=== PATIENT | female | born 1950 | race Caucasian/White ===

== ENCOUNTER → 2019-12-26 10:14 | Outpatient (BNVA) | payer MEDICARE, OTHER, SELFPAY | PROVIDERS: Visit Provider Specialist | DX: F32.9 Major depressive disorder, single episode, unspecified (principal); F17.200 Nicotine dependence, unspecified, uncomplicated; F41.9 Anxiety disorder, unspecified; J44.9 Chronic obstructive pulmonary disease, unspecified | CPT/HCPCS: 99213 ==

== ENCOUNTER 2020-01-09 10:03 | Outpatient (CLI) | payer MEDICARE, OTHER, SELFPAY ==
--- NOTE | 2020-01-09 10:07 | CT_ITS ---
WS: [id number] CT LUNG CANCER SCREENING DLP: 92.69 mGy.cm DIvol: 2.45 mGy CLINICAL INFORMATION SCREENING VISIT: Baseline COMPARISON: 11/17/2017 FINDINGS Diagnostic quality: Satisfactory Comments: None. Lung Nodules: No pulmonary nodules or endobronchial lesions. Lungs: Marked pulmonary hyperexpansion from emphysema. Very minimal interstitial thickening in the pe riphery. No pleural effusions. Heart: Normal heart size. There is a small amount of pericardial fluid versus pericardial thickening. Other findings: Mild atherosclerosis thoracic aorta. Pulmonary artery size is equal to the aorta. CT/CT lung screening [id number] IMPRESSION: LUNG-RADS: 1-Negative FOLLOW UP: 12 Month: Continue annual screening with LDCT
== END 2020-01-09 10:04 | disposition home or self-care (01) ==
LOC: CT 10:05
PROVIDERS: Visit Provider Internal Medicine Critical Care Medicine
DX: Z12.2 Encounter for screening for malignant neoplasm of respiratory organs (principal); F17.210 Nicotine dependence, cigarettes, uncomplicated; I70.0 Atherosclerosis of aorta; J43.9 Emphysema, unspecified
CPT/HCPCS: G0297

== ENCOUNTER 2020-01-22 07:07 | Outpatient (CLI) | payer MEDICARE, OTHER, SELFPAY ==
--- NOTE | 2020-01-22 13:14 | PFTS_ITS ---
Date of Study:01/22/20 Date of Dictation: MECHANICS: Forced vital capacity (FVC) is reduced. Forced expiratory volume in one second (FEV1) is reduced. FEV1/FVC is reduced. FLOW VOLUME LOOP: Reduced flow at all lung volumes with significant scooping. LUNG VOLUMES: Total lung capacity (TLC) is elevated. Residual volume (RV) is elevated. DIFFUSING CAPACITY FOR CARBON MONOXIDE: Severely reduced. INTERPRETATION: The pulmonary function tests are consistent with very severe obstruction. Lung volumes are consistent with air trapping and hyperinflation. Gas exchange (DLCO) is severely reduced. MTDD
== END 2020-01-22 07:08 | disposition home or self-care (01) ==
LOC: RT 07:07
PROVIDERS: Visit Provider Internal Medicine Pulmonary Disease
DX: J44.9 Chronic obstructive pulmonary disease, unspecified (principal); F17.200 Nicotine dependence, unspecified, uncomplicated
CPT/HCPCS: 94010; 94726; 94729

== ENCOUNTER → 2020-12-03 10:54 | Outpatient (BNVA) | payer MEDICARE, OTHER, SELFPAY | PROVIDERS: Visit Provider Specialist | DX: F41.9 Anxiety disorder, unspecified (principal); F32.9 Major depressive disorder, single episode, unspecified; J43.2 Centrilobular emphysema; F17.210 Nicotine dependence, cigarettes, uncomplicated | CPT/HCPCS: 99212 ==

== ENCOUNTER 2021-06-04 08:58 | Outpatient (CLI) | payer MEDICARE, OTHER, SELFPAY ==
[2021-06-04 07:11] VITALS: BP 153/82; PULSE 81; RESP 18; TEMP 36.7; O2SAT 91
[2021-06-04 09:23] VITALS: BP 153/82; PULSE 81; RESP 18; TEMP 36.7; O2SAT 91; BMI 20.5
[2021-06-04 10:31] VITALS: BP 161/75; PULSE 66; RESP 18; TEMP 37; O2SAT 99
[2021-06-04 11:37] VITALS: BP 139/78; BP 139/87; PULSE 70; RESP 18; TEMP 36.7; O2SAT 96
== END 2021-06-04 08:59 | disposition home or self-care (01) ==
LOC: OPS 09:04
PROVIDERS: PCP Internal Medicine; Visit Provider Nurse Practitioner
DX: U07.1 COVID-19 (principal)
CPT/HCPCS: 96365

== ENCOUNTER → 2021-12-01 09:58 | Outpatient (BNVA) | payer MEDICARE, OTHER, SELFPAY | PROVIDERS: PCP Internal Medicine; Visit Provider Specialist | DX: F41.9 Anxiety disorder, unspecified (principal); F32.9 Major depressive disorder, single episode, unspecified; J43.2 Centrilobular emphysema; Z86.16 Personal history of COVID-19; F17.210 Nicotine dependence, cigarettes, uncomplicated | CPT/HCPCS: 99213; 99214 ==

== ENCOUNTER 2022-01-06 11:05 | Outpatient (CLI) | payer MEDICARE, OTHER, SELFPAY ==
--- NOTE | 2022-01-06 11:15 | CT_ITS ---
WS: [id number] LDCT LUNG CANCER SCREENING TECHNIQUE: Noncontrast CT of the chest with coronal and sagittal reformatted images. CLINICAL INFORMATION: lung screening COMPARISON: None. DLP: 81.01 mGy.cm DIvol: Mean CTDIvol: 1.60 (mGy) All CT scans at [facility] use at least one of these dose optimization techniques: automat ed exposure control; mA and/or kV adjustment per patient size (includes targeted exams where dose is matched to clinical indication); or iterative reconstruction. FINDINGS: Mild chronic sinus changes. No acute pulmonary infiltrates. No focal pneumonia or pleural fluid. Aort ic calcification. Normal caliber thoracic aorta. Coronary calcification. No mediastinal or hilar lymp hadenopathy. No axillary lymphadenopathy. Tiny 2 mm noncalcified nodule RIGHT middle lobe. Tiny esophageal hiatal hernia. Tiny pericardial effusion pericardial thickening similar to previous. CT/CT lung screening [id number] IMPRESSION: LUNG-RADS: 2-Benign Appearance or Behavior FOLLOW UP: 12 Month: Continue annual screening with LDCT
== END 2022-01-06 11:06 | disposition home or self-care (01) ==
LOC: RAD 11:07
PROVIDERS: PCP Internal Medicine; Visit Provider Internal Medicine Pulmonary Disease
DX: Z12.2 Encounter for screening for malignant neoplasm of respiratory organs (principal); F17.210 Nicotine dependence, cigarettes, uncomplicated
CPT/HCPCS: 71271

== ENCOUNTER → 2022-05-14 09:44 | Outpatient (BNVA) | payer MEDICARE, OTHER, SELFPAY | PROVIDERS: PCP Internal Medicine; Visit Provider Specialist | DX: L50.1 Idiopathic urticaria (principal); J30.9 Allergic rhinitis, unspecified; J43.2 Centrilobular emphysema; F41.9 Anxiety disorder, unspecified; F32.A Depression, unspecified; F17.210 Nicotine dependence, cigarettes, uncomplicated | CPT/HCPCS: 36415; 80053; 84443; 85025; 85651; 86140; 99214 ==

== ENCOUNTER 2022-07-21 08:51 | Outpatient (CLI) | payer MEDICARE, OTHER, SELFPAY | END 2022-07-21 08:52 | disposition home or self-care (01) | LOC: RT 08:54 | PROVIDERS: PCP Internal Medicine Pulmonary Disease; Visit Provider Specialist | DX: J44.9 Chronic obstructive pulmonary disease, unspecified (principal) | CPT/HCPCS: 80053; 84443; 85025; 85651; 86140; 94010; 94726; 94729 ==

== ENCOUNTER → 2022-08-17 12:14 | Outpatient (BNVA) | payer MEDICARE, OTHER, SELFPAY | PROVIDERS: PCP Internal Medicine Pulmonary Disease; Visit Provider Specialist | DX: L50.1 Idiopathic urticaria (principal); R20.0 Anesthesia of skin; J30.9 Allergic rhinitis, unspecified; J43.2 Centrilobular emphysema; F41.9 Anxiety disorder, unspecified; F32.9 Major depressive disorder, single episode, unspecified; F17.210 Nicotine dependence, cigarettes, uncomplicated | CPT/HCPCS: 99213 ==

== ENCOUNTER → 2022-09-04 11:41 | Outpatient (BNVA) | payer MEDICARE, OTHER, SELFPAY | PROVIDERS: PCP Internal Medicine Pulmonary Disease; Visit Provider Internal Medicine Pulmonary Disease | DX: J43.2 Centrilobular emphysema (principal); F17.210 Nicotine dependence, cigarettes, uncomplicated; Z71.6 Tobacco abuse counseling | CPT/HCPCS: 99214 ==

== ENCOUNTER 2023-02-05 09:51 | Outpatient (CLI) | payer MEDICARE, OTHER, SELFPAY ==
--- NOTE | 2023-02-05 10:00 | CT_ITS ---
WS: [id number] LDCT LUNG CANCER SCREENING TECHNIQUE: Noncontrast CT of the chest with coronal and sagittal reformatted images. CLINICAL INFORMATION: Lung Cancer Screening COMPARISON: CT 01/06/22 DLP: 47.21 mGy.cm DIvol: Mean CTDIvol: 0.70 (mGy) All CT scans at [facility] use at least one of these dose optimization techniques: automat ed exposure control; mA and/or kV adjustment per patient size (includes targeted exams where dose is matched to clinical indication); or iterative reconstruction. FINDINGS: Mild chronic emphysematous changes unchanged from previous. No acute pulmonary infiltrates. No foca l pneumonia or pleural fluid. Tiny 2 mm noncalcified nodule RIGHT middle lobe. Stable tiny subpleural nodule LEFT upper lobe. Stable focal fibrotic nodularity LEFT upper lobe anteriorly unchanged measur ing 6 mm. Tiny subpleural nodule LEFT lower lobe posteriorly unchanged. Aortic calcification. Normal caliber thoracic aorta. Coronary calcification. No mediastinal or hilar lymphadenopathy. No axillary lymphadenopathy. Tiny esophageal hiatal hernia. Tiny pericardial effusio n unchanged compared to previous. IMPRESSION: CT/CT lung screening [id number] LUNG-RADS: 2-Benign Appearance or Behavior FOLLOW UP: 12 Month: Continue annual screening with LDCT
== END 2023-02-05 09:52 | disposition home or self-care (01) ==
PROVIDERS: PCP Internal Medicine Pulmonary Disease; Visit Provider Internal Medicine Pulmonary Disease
DX: Z12.2 Encounter for screening for malignant neoplasm of respiratory organs (principal); F17.210 Nicotine dependence, cigarettes, uncomplicated; J43.2 Centrilobular emphysema
CPT/HCPCS: 71271

== ENCOUNTER → 2023-06-11 11:06 | Outpatient (BNVA) | payer MEDICARE, SELFPAY | PROVIDERS: PCP Internal Medicine Pulmonary Disease; Visit Provider Internal Medicine Pulmonary Disease | DX: J43.2 Centrilobular emphysema (principal); Z71.6 Tobacco abuse counseling; F17.210 Nicotine dependence, cigarettes, uncomplicated | CPT/HCPCS: 99214 ==

== ENCOUNTER → 2023-08-18 13:59 | Outpatient (BNVA) | payer MEDICARE, SELFPAY | PROVIDERS: PCP Nurse Practitioner; Visit Provider Specialist | DX: R29.90 Unspecified symptoms and signs involving the nervous system (principal); F41.9 Anxiety disorder, unspecified; F32.9 Major depressive disorder, single episode, unspecified; J43.2 Centrilobular emphysema | CPT/HCPCS: 99213 ==

== ENCOUNTER → 2024-06-15 13:16 | Outpatient (BNVA) | payer MEDICARE, SELFPAY | PROVIDERS: PCP Nurse Practitioner; Visit Provider Nurse Practitioner | DX: J44.1 Chronic obstructive pulmonary disease with (acute) exacerbation (principal); I70.90 Unspecified atherosclerosis; J43.9 Emphysema, unspecified | CPT/HCPCS: 71046 ==

== ENCOUNTER → 2024-10-26 10:24 | Outpatient (BNVA) | payer MEDICARE, SELFPAY | PROVIDERS: PCP Nurse Practitioner; Visit Provider Specialist | DX: F32.9 Major depressive disorder, single episode, unspecified (principal); F41.9 Anxiety disorder, unspecified; R29.90 Unspecified symptoms and signs involving the nervous system; J43.2 Centrilobular emphysema; F17.210 Nicotine dependence, cigarettes, uncomplicated | CPT/HCPCS: 99213 ==

== ENCOUNTER 2024-11-21 15:16 | Oncology outpatient (recurring) (ONCR) | payer MEDICARE, SELFPAY ==
--- NOTE | 2024-11-21 15:30 | CT_ITS ---
WS: [id number] LDCT LUNG CANCER SCREENING TECHNIQUE: Noncontrast CT of the chest with coronal and sagittal reformatted images. CLINICAL INFORMATION: F17.210 - Nicotine dependence, cigarettes, uncomplicated COMPARISON: 2022 DLP: 48.61 mGy.cm DIvol: Mean CTDIvol: 0.80 (mGy) All CT scans at [facility] use at least one of these dose optimization techniques: automated exposure control; mA and/or kV adjustment per patient size (includes targeted exams where dose is matched to clinical indication); or iterative reconstruction. FINDINGS: Moderate chronic emphysematous changes. Tiny 2 mm noncalcified nodule RIGHT middle lobe. Stable tiny subpleural nodule LEFT upper lobe. Stable focal fibrotic nodule LEFT upper lobe anteriorly along the anterior mediastinum unchanged measuring 6 mm. Tiny subpleural nodule LEFT lower lobe posteriorly unc hanged. No new suspicious pulmonary parenchymal abnormalities. Normal caliber thoracic aorta. Aortic calcification. Coronary calcification. No mediastinal or hilar lymphadenopathy. No axillary lymphadenopathy. Small pericardial effusion. Splenic artery calcification. Mild thoracic curve and kyphosis. CT/CT lung screening [id number] IMPRESSION: LUNG-RADS: 2-Benign Appearance or Behavior FOLLOW UP: 12 Month: Continue annual screening with LDCT
== END 2024-12-04 23:59 | disposition home or self-care (01) ==
LOC: RAD 15:19 → ONCMED 11-22 09:35
PROVIDERS: PCP Nurse Practitioner; Visit Provider Specialist
DX: Z12.2 Encounter for screening for malignant neoplasm of respiratory organs (principal); F17.210 Nicotine dependence, cigarettes, uncomplicated; J43.8 Other emphysema; R91.8 Other nonspecific abnormal finding of lung field; I70.0 Atherosclerosis of aorta; I25.10 Atherosclerotic heart disease of native coronary artery without angina pectoris; I31.39 Other pericardial effusion (noninflammatory); I70.8 Atherosclerosis of other arteries; M43.8X4 Other specified deforming dorsopathies, thoracic region; M40.294 Other kyphosis, thoracic region
CPT/HCPCS: 71271